=== PATIENT | female | born 1950 | race Caucasian/White ===

== ENCOUNTER 2017-02-09 08:36 | Observation (INO) | payer MEDICARE, BC ==
[2017-02-09] VITALS (8 sets, daily range): BP systolic 140–188; BP diastolic 63–91; PULSE 46–63; RESP 18–20; TEMP 97.5–98.2; O2SAT 98–100
[~2017-02-09] VITALS: Ht 162.6 cm; Wt 60.0 kg
[~2017-02-09 08:36] MED LIST: ATEN1TAB73 PO; IRBE150T49 PO; PERC5TAB12 PO
[2017-02-09] MEDS ORDERED: multivitamin PO (08:56)
[2017-02-09] MEDS ORDERED: IRBE150T49 PO (08:56)
[2017-02-09] MEDS ORDERED: ASPI81CH CHEW (08:56)
[2017-02-09] MEDS ORDERED: ATEN25TA PO (08:56)
[2017-02-09] MEDS ORDERED: SODIUM CHLORIDE 0.9% FLUSH 10 ML FLUSH IVF PRN (09:00)
--- NOTE | 2017-02-09 09:41 | RADRPT ---
EXAM DATE/TIME: 02/09/2017 08:58 [facility] COMPARISON: No previous studies available for comparison. INDICATIONS : Chest pain for the past 2 mornings, no shortness of breath, no pain at this time MEDICAL HISTORY : thyroid SURGICAL HISTORY : thyroidectomy ENCOUNTER: Initial ACUITY: 2 days PAIN SCORE: 0/10 LOCATION: Bilateral chest FINDINGS: A single view of the chest demonstrates the lungs to be symmetrically aerated without evidence of mas s, infiltrate or effusion. The cardiomediastinal contours are unremarkable. Osseous structures are intact. CONCLUSION: 1. No acute cardiopulmonary findings. Mg Castillo MD on February 09, 2017 at 9:39 Board Certified Radiologist. This report was verified electronically.
--- NOTE | 2017-02-09 09:41 | PD ---
HPI Chief Complaint: Chest Pain Time Seen by Provider: 09:04 Travel History International Travel<30 days: No Contact w/Intl Traveler<30days: No Traveled to known affect area: No History of Present Illness HPI 66-year-old female patient with history of CAD, angina, hypertension, hypothyroidism, breast cancer status post right mastectomy and treatment, presents to the ER today for intermittent course over the last 2 days of chest pains which she states is a ache, was a 6 out of 10 this morning, getting better now. She had some nausea this morning but states is gone. She denies any vomiting, shortness of breath, or any other symptoms. She does not know any exacerbating or alleviating factors. She states it lasted for several hours this morning. Modifying Factors: None Associated Signs & Symptoms: Intermittent chest pains Risk Factors: Cardiac history PFSH Past Medical History Arthritis: Yes Asthma: No Autoimmune Disease: No Anxiety: No Depression: No Heart Rhythm Problems: Yes (hx cp 2009/murmur) Cancer: Yes (RIGHT BREAST CANCER - NO CHEMO NO RADIATION - SURG MASTECTOMY ) Cardiovascular Problems: Yes High Cholesterol: Yes Chemotherapy: No Chest Pain: No Congestive Heart Failure: No COPD: No Cerebrovascular Accident: No Diabetes: No Diminished Hearing: No Endocrine: No GERD: No Genitourinary: No Hepatitis: No Hiatal Hernia: No Hypertension: Yes Immune Disorder: No Kidney Stones: No Musculoskeletal: Yes Neurologic: No Psychiatric: No Reproductive: Yes (ENDOMETRIAL HYPERPLASIA) Respiratory: No Migraines: No Radiation Therapy: No Renal Failure: No Seizures: No Sickle Cell Disease: No Sleep Apnea: No Thyroid Disease: Yes (HX GOITER - EXCISED 1984) Ulcer: No Tetanus Vaccination: > 5 Years ?: Not Menopausal: Yes Past Surgical History Abdominal Surgery: Yes (APPY ) AICD: No Appendectomy: Yes Arteriovenous Shunt: No Body Medical Devices: IMPLANT RIGHT BREAST (SILICONE) Cardiac Surgery: No Endocrine Surgery: Yes (MADI THYROIDECTOMY ) Eye Surgery: No Genitourinary Surgery: No Gynecologic Surgery: No Hysterectomy: Yes Insulin Pump: No Joint Replacement: No Oral Surgery: Yes (TONSILLECTOMY ) Pacemaker: No Thoracic Surgery: Yes (RIGHT BREAST MASTECTOMY, GOLF RANGE ATTENDANT, REMOVED/ IMPLANT SILICONE RIGHT BREAST ) Tonsillectomy: Yes Other Surgery: Yes (MASTECTOMY 2011) Social History Alcohol Use: Yes (1-2 GLASSES OF WINE) Tobacco Use: No Substance Use: No Allergies-Medications (Allergen,Severity, Reaction): Coded Allergies: Codeine (Verified Allergy, Severe, UNKNOWN, 06/04/14) NAUSEA ; INTERMEDIATE REACTION Latex (Verified Allergy, Severe, UNKNOWN, 06/04/14) RASH; INTERMEDIATE REACTION Sulfa (Verified Allergy, Severe, UNKNOWN, 06/04/14) CHILDHOOD ALLERGY ; NOT SURE OF REACTION Uncoded Allergies: opiods (Adverse Reaction, Intermediate, Hallucinations, 02/09/17) Reported Meds & Prescriptions Reported Meds & Active Scripts Active Reported [multivitamin] 1 PO QOD Avapro (Irbesartan) 150 Mg Tab 150 Mg PO DAILY Atenolol 25 Mg Tab 25 Mg PO DAILY Aspirin 81 Mg Chew 81 Mg CHEW DAILY Review of Systems Except as stated in HPI: all other systems reviewed are Neg Physical Exam Narrative GENERAL: Well-developed elderly white female patient currently in mild distress but awake and oriented 3. SKIN: Focused skin assessment warm/dry. HEAD: Atraumatic. Normocephalic. EYES: Pupils equal and round. No scleral icterus. No injection or drainage. ENT: No nasal bleeding or discharge. Mucous membranes pink and moist. NECK: Trachea midline. No JVD. CARDIOVASCULAR: Regular rate and rhythm. No murmur appreciated. Pulses are present and equal bilaterally. RESPIRATORY: No accessory muscle use. Clear to auscultation. Breath sounds equal bilaterally. GASTROINTESTINAL: Abdomen soft, non-tender, nondistended. Hepatic and splenic margins not palpable. MUSCULOSKELETAL: No obvious deformities. No clubbing. No cyanosis. No edema. NEUROLOGICAL: Awake and alert. No obvious cranial nerve deficits. Motor grossly within normal limits. Normal speech. PSYCHIATRIC: Appropriate mood and affect; insight and judgment normal. Data Data Last Documented VS Vital Signs Date Time Temp Pulse Resp B/P Pulse Ox O2 Delivery O2 Flow Rate FiO2 02/09/17 09:47 48 150/69 100 Room Air 02/09/17 09:00 18 02/09/17 08:38 98.2 Orders Electrocardiogram (02/09/17 08:56) Ckmb (Isoenzyme) Profile (02/09/17 08:56) Complete Blood Count With Diff (02/09/17 08:56) Comprehensive Metabolic Panel (02/09/17 08:56) Magnesium (Mg) (02/09/17 08:56) Prothrombin Time / Inr (Pt) (02/09/17 08:56) Act Partial Throm Time (Ptt) (02/09/17 08:56) Troponin I (02/09/17 08:56) Chest, Single Ap (02/09/17 08:56) Ecg Monitoring (02/09/17 08:56) Bilateral Bp Monitoring (02/09/17 08:56) Iv Access Insert/Monitor (02/09/17 08:56) Oximetry (02/09/17 08:56) Oxygen Administration (02/09/17 08:56) Sodium Chloride 0.9% Flush (Ns Flush) (02/09/17 09:00) Labs Laboratory Tests Test 02/09/17 09:23 White Blood Count 6.7 TH/MM3 Red Blood Count 4.36 MIL/MM3 Hemoglobin 13.1 GM/DL Hematocrit 39.1 % Mean Corpuscular Volume 89.9 FL Mean Corpuscular Hemoglobin 30.0 PG Mean Corpuscular Hemoglobin 33.4 % Concent Red Cell Distribution Width 13.8 % Platelet Count 260 TH/MM3 Mean Platelet Volume 7.8 FL Neutrophils (%) (Auto) 60.7 % Lymphocytes (%) (Auto) 30.3 % Monocytes (%) (Auto) 7.7 % Eosinophils (%) (Auto) 0.8 % Basophils (%) (Auto) 0.5 % Neutrophils # (Auto) 4.0 TH/MM3 Lymphocytes # (Auto) 2.0 TH/MM3 Monocytes # (Auto) 0.5 TH/MM3 Eosinophils # (Auto) 0.1 TH/MM3 Basophils # (Auto) 0.0 TH/MM3 CBC Comment DIFF FINAL Differential Comment Prothrombin Time 10.5 SEC Prothromb Time International 1.0 RATIO Ratio Activated Partial 25.5 SEC Thromboplast Time Sodium Level 138 MEQ/L Potassium Level 4.5 MEQ/L Chloride Level 105 MEQ/L Carbon Dioxide Level 27.2 MEQ/L Anion Gap 6 MEQ/L Blood Urea Nitrogen 17 MG/DL Creatinine 0.79 MG/DL Estimat Glomerular Filtration 73 ML/MIN Rate Random Glucose 99 MG/DL Calcium Level 8.9 MG/DL Magnesium Level 2.3 MG/DL Total Bilirubin 0.6 MG/DL Aspartate Amino Transf 18 U/L (AST/SGOT) Alanine Aminotransferase 23 U/L (ALT/SGPT) Alkaline Phosphatase 74 U/L Total Creatine Kinase 47 U/L Troponin I LESS THAN 0.02 NG/ML Total Protein 6.5 GM/DL Albumin 3.7 GM/DL MDM Medical Decision Making Medical Screen Exam Complete: Yes Emergency Medical Condition: Yes Medical Record Reviewed: Yes Interpretation(s) EKG shows sinus bradycardia rate of 54 bpm, no ST elevation or depression, and no arrhythmias. No significant T-wave inversions. Last 24 hours Impressions Chest X-Ray 02/09/17 0856 Signed Impressions: Service Date/Time: Thursday, February 09, 2017 08:58 - CONCLUSION: 1. No acute cardiopulmonary findings. Mg Castillo MD Laboratory Tests Test 02/09/17 09:23 Estimat Glomerular Filtration 73 ML/MIN (>89) Rate Troponin I LESS THAN 0.02 NG/ML (0.02-0.05) Differential Diagnosis Intermittent chest painsangina versus ACS versus anxiety versus dysrhythmias versus costochondritis Narrative Course EKG did not show dysrhythmias or ST changes. Cardiac enzymes are negative. At this point, my plan would be to admit her to chest pain center for further evaluation a chest pain. Diagnosis Primary Impression: Chest pain Admitting Information Admitting Physician Requests: Admit Chemo Hurt MD Feb 09, 2017 09:41 Chemo Hurt MD Feb 09, 2017 09:41
[2017-02-09 09:42] LABS: BASOPHIL % 0.5 % (0.0-2.0); EOSINOPHIL # 0.1 TH/MM3 (0-0.4); EOSINOPHIL % 0.8 % (0.0-4.0); HEMATOCRIT 39.1 % (35.0-46.0); HEMO FLAGS DIFF FINAL; LYMPH % 30.3 % (9.0-44.0); MEAN CELL VOLUME 89.9 FL (80.0-100.0); MEAN CORPUSCULAR HGB CONC 33.4 % (32.0-36.0); MONO % 7.7 % (0.0-8.0); NEUT % 60.7 % (16.0-70.0); PLATELET COUNT 260 TH/MM3 (150-450); RED BLOOD COUNT 4.36 MIL/MM3 (4.00-5.30); RED CELL DISTRIBUTION WIDTH 13.8 % (11.6-17.2); WHITE BLOOD COUNT 6.7 TH/MM3 (4.0-11.0)
[2017-02-09 09:53] LABS: APTT (PATIENT) 25.5 SEC (24.3-30.1); PROTHROMBIN TIME - PATIENT 10.5 SEC (9.8-11.6)
[2017-02-09 10:12] LABS: ANION GAP 6 MEQ/L (5-15); AST (GOT) 18 U/L (15-37); BICARBONATE 27.2 MEQ/L (21.0-32.0); BLOOD UREA NITROGEN 17 MG/DL (7-18); CHLORIDE 105 MEQ/L (98-107); GLOMERULAR FILTRATION RATE 73 ML/MIN (>89); MAGNESIUM 2.3 MG/DL (1.5-2.5); POTASSIUM 4.5 MEQ/L (3.5-5.1); SODIUM (NA) 138 MEQ/L (136-145)
[2017-02-09 10:13] LABS: ALT (GPT) 23 U/L (10-53)
[2017-02-09 10:18] LABS: ALKALINE PHOSPHATASE 74 U/L (45-117); CREATINE KINASE 47 U/L (26-192); TOTAL BILIRUBIN ADULT 0.6 MG/DL (0.2-1.0)
[2017-02-09] MEDS ORDERED: SODIUM CHLORIDE 0.9% FLUSH 5 ML FLUSH IVF PRN (11:45)
--- NOTE | 2017-02-09 11:50 | HHI.HP ---
[facility] Primary Care Physician Ronaldo Wallace MD, PhD Chief Complaint Chest pain History of Present Illness This is a 66-year-old female that presents to ED via private vehicle with a friend complaining of intermittent chest discomfort for 3 days. First episode began 3 days ago. She states it was a achy discomfort over her sternum and lasted all day. She found nothing to worsen or improve. She took some Advil and went to bed. She woke up yesterday morning at 4:00 with the discomfort. She took a baby aspirin. The discomfort resolved within about 10 minutes. Then this morning around 5:30 she developed the same discomfort but it was more intense. He was over the sternum but felt deeper and also left upper chest. She also felt an achiness going down her left arm. She took a baby aspirin. This lasted a few hours. She will pull nauseous. No shortness breath or diaphoresis. She found nothing to worsen or improve the symptoms. Denies history of CAD. She states that stress test past. I reviewed her records she had a Raul protocol ETT in 2009 and was nonischemic. Review of Systems General: Patient denies fevers, chills recent, and recent travel HEENT: Patient denies headache, sore throat, difficulty swallowing. Cardiovascular: Has the chest discomfort as mentioned above. Denies sensation of heart beating rapidly or irregularly. No syncope. Denies diaphoresis. Respiratory: Denies shortness of breath or inspirational chest discomfort. Denies coughing wheezing or hemoptysis. GI: She was nauseous this morning. Patient denies vomiting, diarrhea, abdominal pain, bloody stools. Musculoskeletal: Patient denies joint pain or edema. Denies calf pain or edema. Neurovascular: Patient denies numbness, tingling, weakness in extremities. Denies headache. Endocrine: Denies polyuria and polydipsia. Hematologic: Denies easy bruising. Skin: Denies rash or itching. Past Family Social History Allergies: Coded Allergies: Codeine (Verified Allergy, Severe, UNKNOWN, 06/04/14) NAUSEA ; INTERMEDIATE REACTION Latex (Verified Allergy, Severe, UNKNOWN, 06/04/14) RASH; INTERMEDIATE REACTION Sulfa (Verified Allergy, Severe, UNKNOWN, 06/04/14) CHILDHOOD ALLERGY ; NOT SURE OF REACTION Uncoded Allergies: opiods (Adverse Reaction, Intermediate, Hallucinations, 6/6/17) Past Medical History Hypertension. History of breast cancer with right mastectomy. Denies hyperlipidemia, diabetes, and known CAD. Past Surgical History Right mastectomy. Appendectomy, hysterectomy, tonsillectomy, and partial thyroidectomy. Reported Medications Reported Meds & Active Scripts Active Reported [multivitamin] 1 PO QOD Avapro (Irbesartan) 150 Mg Tab 150 Mg PO DAILY Atenolol 25 Mg Tab 25 Mg PO DAILY Aspirin 81 Mg Chew 81 Mg CHEW DAILY Active Ordered Medications Current Medications Medications (Trade) Dose Ordered Sig/Tay Route Start Time Stop Time Status Last Admin (NS Flush) 2 ml UNSCH PRN IVF 02/09/17 09:00 Family History Her father had a stent at age 90. Social History Patient quit smoking in 1984. She has on average 2 glasses of wine a day. Denies illicit drugs. Physical Exam Vital Signs Vital Signs Date Time Temp Pulse Resp B/P Pulse Ox O2 Delivery O2 Flow Rate FiO2 02/09/17 11:27 55 20 140/63 100 Room Air 02/09/17 09:47 48 150/69 100 Room Air 02/09/17 09:34 100 Room Air 02/09/17 09:32 100 Room Air 02/09/17 09:32 100 Room Air 02/09/17 09:00 50 18 188/85 100 Room Air 168/74 02/09/17 08:56 50 18 188/85 100 Room Air 168/74 02/09/17 08:38 98.2 63 18 188/91 98 Physical Exam GENERAL: This is a well-nourished, well-developed patient, in no apparent distress. Patient speaks in clear complete sentences. Patient is pleasant. HEENT: Head is atraumatic and normocephalic. Neck is supple without lymphadenopathy and trachea is midline. No JVD or carotid bruits. CARDIOVASCULAR: Regular rate and rhythm without murmurs, gallops, or rubs. RESPIRATORY: Clear to auscultation. Breath sounds equal bilaterally. No wheezes , rales, or rhonchi. Chest wall is tender in the midsternal region however she states her chest wall is always tender.. No use of accessory muscles. GASTROINTESTINAL: Abdomen is nontender, nondistended. Abdomen soft. No obvious pulsatile mass or bruit. No CVA tenderness. Strong femoral pulses bilaterally. Normal bowel sounds in all quadrants. MUSCULOSKELETAL: Patient is moving upper and lower extremities freely. No calf tenderness or edema, no Homans sign. Strong pulses in upper and lower extremities. NEUROLOGICAL: Patient is alert and oriented. Cranial nerves 2-12 are grossly intact. No focal deficits and speech is clear. SKIN: No rash and turgor is normal. Laboratory Laboratory Tests Test 02/09/17 09:23 White Blood Count 6.7 Red Blood Count 4.36 Hemoglobin 13.1 Hematocrit 39.1 Mean Corpuscular Volume 89.9 Mean Corpuscular Hemoglobin 30.0 Mean Corpuscular Hemoglobin 33.4 Concent Red Cell Distribution Width 13.8 Platelet Count 260 Mean Platelet Volume 7.8 Neutrophils (%) (Auto) 60.7 Lymphocytes (%) (Auto) 30.3 Monocytes (%) (Auto) 7.7 Eosinophils (%) (Auto) 0.8 Basophils (%) (Auto) 0.5 Neutrophils # (Auto) 4.0 Lymphocytes # (Auto) 2.0 Monocytes # (Auto) 0.5 Eosinophils # (Auto) 0.1 Basophils # (Auto) 0.0 CBC Comment DIFF FINAL Differential Comment Prothrombin Time 10.5 Prothromb Time International 1.0 Ratio Activated Partial 25.5 Thromboplast Time Sodium Level 138 Potassium Level 4.5 Chloride Level 105 Carbon Dioxide Level 27.2 Anion Gap 6 Blood Urea Nitrogen 17 Creatinine 0.79 Estimat Glomerular Filtration 73 Rate Random Glucose 99 Calcium Level 8.9 Magnesium Level 2.3 Total Bilirubin 0.6 Aspartate Amino Transf 18 (AST/SGOT) Alanine Aminotransferase 23 (ALT/SGPT) Alkaline Phosphatase 74 Total Creatine Kinase 47 Troponin I LESS THAN 0.02 Total Protein 6.5 Albumin 3.7 Result Diagram: 02/09/1792202/09/1723 Imaging Vital Signs Date Time Temp Pulse Resp B/P Pulse Ox O2 Delivery O2 Flow Rate FiO2 02/09/17 11:27 55 20 140/63 100 Room Air 02/09/17 09:47 48 150/69 100 Room Air 02/09/17 09:34 100 Room Air 02/09/17 09:32 100 Room Air 02/09/17 09:32 100 Room Air 02/09/17 09:00 50 18 188/85 100 Room Air 168/74 02/09/17 08:56 50 18 188/85 100 Room Air 168/74 02/09/17 08:38 98.2 63 18 188/91 98 Last 48 hours Impressions Chest X-Ray 02/09/17 0856 Signed Impressions: Service Date/Time: Thursday, February 09, 2017 08:58 - CONCLUSION: 1. No acute cardiopulmonary findings. Mg Castillo MD Course Initial EKG has sinus rhythm without significant ST segment depressions or elevations. Assessment and Plan Assessment and Plan * Chest pain: Patient will continue to have serial cardiac enzymes and EKGs for ruling out purposes. She will be seen by Dr. Ritchie cardiology in the chest pain center. She will likely undergo a Raul protocol ETT. She will likely be discharged home if her stress test is nonischemic. * Hypertension: Continue current medication. Patient is stable this time. She is agreeable to this plan. Rey Bryant Feb 09, 2017 11:50
[2017-02-09] MEDS ORDERED: ACETAMINOPHEN 500 MG CPLT PO PRN (12:00)
[2017-02-09] MEDS ORDERED: ONDANSETRON HCL 4 MG/2 ML VIAL IV PRN (12:00)
[2017-02-09] MEDS ORDERED: PANTOPRAZOLE SOD 40 MG DELAYED RELEASE TAB PO SCH (13:00)
[2017-02-09 13:48] LABS: CREATINE KINASE 37 U/L (26-192)
[2017-02-09 15:03] LABS: CREATINE KINASE 33 U/L (26-192)
--- NOTE | 2017-02-09 16:12 | EKG ---
Date Performed: 02/09/2017 Time Performed: 14:25:16 PTAGE: 66 years EKG: SINUS BRADYCARDIA BORDERLINE ECG Since PREVIOUS TRACING , no significant change noted PREVIOUS TRACIN02/09/2017 12.27 DOCTOR: Sondra Ritchie Interpretating Date/Time 02/09/2017 16:10:15
--- NOTE | 2017-02-09 16:14 | TR ---
Date Performed: 02/09/2017 Time Performed: 15:39:27 DOCTOR: Sondra Ritchie DRUG LIST: CLINICAL HISTORY: REASON FOR TEST: Chest pain REASON FOR ENDING: OBSERVATION: CONCLUSION: TIMA PROTOCOL. NO CP. TEST STOPPED AFTER REACHING GOAL HR SECONDARY TO SOB.Maximum XH=918 Max HR Achieved=92.0% Maximum XP=990/90 Total Exercise Time=9:52 COMMENTS:
--- NOTE | 2017-02-09 16:15 | EKG ---
Date Performed: 02/09/2017 Time Performed: 12:27:56 PTAGE: 66 years EKG: SINUS BRADYCARDIA BORDERLINE ECG Since PREVIOUS TRACING , no significant change noted PREVIOUS TRACIN02/09/2017 08.51 DOCTOR: Sondra Ritchie Interpretating Date/Time 02/09/2017 16:14:14
--- NOTE | 2017-02-09 16:17 | EKG ---
Date Performed: 02/09/2017 Time Performed: 08:51:24 PTAGE: 66 years EKG: SINUS BRADYCARDIA BORDERLINE ECG Since PREVIOUS TRACING , no significant change noted PREVIOUS TRACIN02/20/2014 14.02.52 DOCTOR: Sondra Ritchie Interpretating Date/Time 02/09/2017 22:29:38
[2017-02-09] MEDS ORDERED: AMLO5TAB2 PO (16:31)
--- NOTE | 2017-02-09 16:31 | HHI.DCPOC ---
Discharge Care Plan Diagnosis: (1) Chest pain Goals to Promote Your Health * To prevent worsening of your condition and complications * To maintain your health at the optimal level Directions to Meet Your Goals Take your medications as prescribed Follow your dietary instruction Follow activity as directed Keep your appointments as scheduled Take your immunizations and boosters as scheduled If your symptoms worsen call your PCP, if no PCP go to Urgent Care Center or Emergency Room Smoking is Dangerous to Your Health. Avoid second hand smoke Call the 24-hour hour crisis hotline for domestic abuse at Rey Bryant Feb 09, 2017 16:31
[2017-02-09] MEDS ORDERED: SODIUM CHLORIDE 0.9% FLUSH 5 ML FLUSH IVF SCH (21:00)
[2017-02-10] MEDS ORDERED: ASPIRIN 325 MG TAB PO SCH (09:00)
[2017-02-10] MEDS ORDERED: ATENOLOL 25 MG TAB PO SCH (09:00)
== END 2017-02-09 17:15 | disposition home or self-care (01) ==
LOC: NEPC 08:36 → NEDA 10:45 → NEPHCDU 11:36
PROVIDERS: ADMIT Internal Medicine Interventional Cardiology; ATTEND Internal Medicine Interventional Cardiology
DX: R07.89 Other chest pain (principal); I10 Essential (primary) hypertension; M19.90 Unspecified osteoarthritis, unspecified site; Z88.5 Allergy status to narcotic agent; Z88.2 Allergy status to sulfonamides; Z91.040 Latex allergy status; Z85.3 Personal history of malignant neoplasm of breast; Z79.82 Long term (current) use of aspirin; Z87.891 Personal history of nicotine dependence
CPT/HCPCS: 71010; 80053; 82550; 83735; 84484; 85025; 85610; 85730; 93005; 93017; 99285; G0378

== ENCOUNTER 2017-02-19 23:51 | Emergency (ER) | payer MEDICARE, BC ==
[~2017-02-19] VITALS: Ht 162.6 cm; Wt 59.0 kg
[~2017-02-19 23:51] MED LIST changes: +AMLO5TAB2 PO; +ASPI81CH CHEW; -ATEN1TAB73 PO; -PERC5TAB12 PO; +multivitamin PO
[2017-02-20 00:04] VITALS: BP 156/79; PULSE 73; RESP 14; TEMP 98.2; O2SAT 100
[2017-02-20 00:22] LABS: MEAN CORPUSCULAR HGB CONC 36.2 % (32.0-36.0)
[2017-02-20] MEDS ORDERED: SODIUM CHLORIDE 0.9% FLUSH 10 ML FLUSH IVF PRN (00:30)
--- NOTE | 2017-02-20 00:38 | PD ---
HPI Chief Complaint: Chest Pain Time Seen by Provider: 00:07 Travel History International Travel<30 days: No Contact w/Intl Traveler<30days: No Traveled to known affect area: No History of Present Illness HPI This 66 year-old woman presents to the emergency department complaining of sharp chest pain lasting seconds at a time, multiple births over about 10 minutes or so, happening tonight awoke her from sleep. Pains are in the mid chest, sharp. No shortness of breath. She states she's been on atenolol since the 80s, but she was seen for chest pain or blood pressure was low. They changed to amlodipine about a week ago but she started to develop ankle edema. She was just changed to an increased dose of IV start. She has no history of CAD but was told in the past that she had "angina" in the 80s and she was apparently having chest pains. She is also diagnosis of mitral valve prolapse at that time. She otherwise has been feeling well and healthy. No other complaints. History Past Medical History Narrative Medical Hypertension Hypothyroidism Breast cancer History of "angina" a diagnosis of mitral valve prolapse in the past. Menopausal: Yes Social History Alcohol Use: Yes (1-2 GLASSES OF WINE DAILY) Tobacco Use: No Allergies-Medications (Allergen,Severity, Reaction): Coded Allergies: Codeine (Verified Allergy, Severe, UNKNOWN, 02/20/17) NAUSEA ; INTERMEDIATE REACTION Latex (Verified Allergy, Severe, UNKNOWN, 02/20/17) RASH; INTERMEDIATE REACTION Sulfa (Verified Allergy, Severe, UNKNOWN, 02/20/17) CHILDHOOD ALLERGY ; NOT SURE OF REACTION Uncoded Allergies: opiods (Adverse Reaction, Intermediate, Hallucinations, 02/09/17) Reported Meds & Prescriptions Reported Meds & Active Scripts Active Reported [multivitamin] 1 PO QOD Avapro (Irbesartan) 150 Mg Tab 150 Mg PO HS Review of Systems Except as stated in HPI: all other systems reviewed are Neg Physical Exam Narrative GENERAL: Well-appearing 66 year-old woman, no acute distress. SKIN: Focused skin assessment warm/dry. HEAD: Atraumatic. Normocephalic. CARDIOVASCULAR: Regular rate and rhythm. No murmur appreciated. RESPIRATORY: No accessory muscle use. Clear to auscultation. Breath sounds equal bilaterally. GASTROINTESTINAL: Abdomen soft, non-tender, nondistended. Hepatic and splenic margins not palpable. MUSCULOSKELETAL: No obvious deformities. No edema. NEUROLOGICAL: Awake and alert. No obvious cranial nerve deficits. Motor grossly within normal limits. Normal speech. Data Data Last Documented VS Vital Signs Date Time Temp Pulse Resp B/P Pulse Ox O2 Delivery O2 Flow Rate FiO2 02/20/17 00:26 100 Room Air 02/20/17 00:04 98.2 73 14 156/79 Orders Electrocardiogram (02/20/17 00:20) Complete Blood Count With Diff (02/20/17 00:20) Comprehensive Metabolic Panel (02/20/17 00:20) Magnesium (Mg) (02/20/17 00:20) Troponin I (02/20/17 00:20) Lipase (02/20/17 00:20) Chest, Single Ap (02/20/17 00:20) Ecg Monitoring (02/20/17 00:20) Iv Access Insert/Monitor (02/20/17 00:20) Oximetry (02/20/17 00:20) Oxygen Administration (02/20/17 00:20) Sodium Chloride 0.9% Flush (Ns Flush) (02/20/17 00:30) Labs Laboratory Tests Test 02/20/17 00:39 White Blood Count 9.0 TH/MM3 Red Blood Count 4.32 MIL/MM3 Hemoglobin 13.7 GM/DL Hematocrit 38.0 % Mean Corpuscular Volume 88.0 FL Mean Corpuscular Hemoglobin 31.8 PG Mean Corpuscular Hemoglobin 36.2 % Concent Red Cell Distribution Width 13.5 % Platelet Count 321 TH/MM3 Mean Platelet Volume 8.1 FL Neutrophils (%) (Auto) 63.9 % Lymphocytes (%) (Auto) 26.5 % Monocytes (%) (Auto) 7.6 % Eosinophils (%) (Auto) 1.3 % Basophils (%) (Auto) 0.7 % Neutrophils # (Auto) 5.7 TH/MM3 Lymphocytes # (Auto) 2.4 TH/MM3 Monocytes # (Auto) 0.7 TH/MM3 Eosinophils # (Auto) 0.1 TH/MM3 Basophils # (Auto) 0.1 TH/MM3 CBC Comment AUTO DIFF Differential Comment AUTO DIFF CONFIRMED Platelet Estimate NORMAL Platelet Morphology Comment NORMAL Sodium Level 140 MEQ/L Potassium Level 4.2 MEQ/L Chloride Level 105 MEQ/L Carbon Dioxide Level 28.7 MEQ/L Anion Gap 6 MEQ/L Blood Urea Nitrogen 16 MG/DL Creatinine 0.99 MG/DL Estimat Glomerular Filtration 56 ML/MIN Rate Random Glucose 95 MG/DL Calcium Level 9.1 MG/DL Magnesium Level 2.4 MG/DL Total Bilirubin 0.4 MG/DL Aspartate Amino Transf 38 U/L (AST/SGOT) Alanine Aminotransferase 29 U/L (ALT/SGPT) Alkaline Phosphatase 89 U/L Troponin I LESS THAN 0.02 NG/ML Total Protein 7.9 GM/DL Albumin 4.4 GM/DL Lipase 245 U/L [facility] Medical Decision Making Medical Screen Exam Complete: Yes Emergency Medical Condition: Yes Interpretation(s) My review of EKG: Normal sinus rhythm at a rate of 65, normal axis, normal intervals, no acute ischemia. LABS: CBC unremarkable. CMP unremarkable. Troponin negative. Lipase is normal Chest x-ray negative Differential Diagnosis Anxiety, palpitations, arrhythmia, ACS, PE, other Narrative Course Medical decision making INITIAL: 66 year-old woman presents to the emergency department complaining of chest pain. Chest pain is lasting seconds at a time, multiple births in the mid chest. This does not sound consistent with ACS. Recent admission to the chest pain Center week or so ago. No stress test. She looks well. This is likely palpitations arrhythmia or anxiety. We'll check labs, outpatient follow- up with cardiology. Diagnosis Primary Impression: Chest pain Additional Instructions: Follow-up with Dr. Ritchie next week. Return to the emergency department for any new or worsening symptoms. Med/Other Pt SpecificInfo: No Change to Meds Disposition: 01 DISCHARGE HOME Condition: Stable René Araya MD Feb 20, 2017 00:38
--- NOTE | 2017-02-20 00:53 | RADRPT ---
EXAM DATE/TIME: 02/20/2017 00:32 [facility] COMPARISON: CHEST SINGLE AP, February 09, 2017, 8:58. INDICATIONS : Chest pain earlier today but self resolved. MEDICAL HISTORY : None. SURGICAL HISTORY : None. ENCOUNTER: Initial ACUITY: 1 day PAIN SCORE: 0/10 LOCATION: Bilateral chest FINDINGS: A single view of the chest demonstrates the lungs to be symmetrically aerated without evidence of mas s, infiltrate or effusion. The cardiomediastinal contours are unremarkable. Osseous structures are intact. CONCLUSION: No acute disease. No significant change has occurred. Wyatt Boucher MD on February 20, 2017 at 0:51 Board Certified Radiologist. This report was verified electronically.
[2017-02-20 00:57] LABS: AUTOMATED NEUTROPHIL # 5.7 TH/MM3 (1.8-7.7); BASOPHIL # 0.1 TH/MM3 (0-0.2); BASOPHIL % 0.7 % (0.0-2.0); EOSINOPHIL # 0.1 TH/MM3 (0-0.4); EOSINOPHIL % 1.3 % (0.0-4.0); LYMPH % 26.5 % (9.0-44.0); LYMPHOCYTE # 2.4 TH/MM3 (1.0-4.8); MEAN CORPUSCULAR HEMOGLOBIN 31.8 PG (27.0-34.0); MONO % 7.6 % (0.0-8.0); NEUT % 63.9 % (16.0-70.0); PLATELET COUNT 321 TH/MM3 (150-450); RED BLOOD COUNT 4.32 MIL/MM3 (4.00-5.30); RED CELL DISTRIBUTION WIDTH 13.5 % (11.6-17.2)
[2017-02-20 01:21] LABS: ALKALINE PHOSPHATASE 89 U/L (45-117); ALT (GPT) 29 U/L (10-53); TOTAL BILIRUBIN ADULT 0.4 MG/DL (0.2-1.0)
[2017-02-20 01:24] LABS: HEMO FLAGS AUTO DIFF
[2017-02-20 01:34] LABS: ANION GAP 6 MEQ/L (5-15); AST (GOT) 38 U/L (15-37); BICARBONATE 28.7 MEQ/L (21.0-32.0); BLOOD UREA NITROGEN 16 MG/DL (7-18); CHLORIDE 105 MEQ/L (98-107); GLOMERULAR FILTRATION RATE 56 ML/MIN (>89); MAGNESIUM 2.4 MG/DL (1.5-2.5); POTASSIUM 4.2 MEQ/L (3.5-5.1); SODIUM (NA) 140 MEQ/L (136-145)
[2017-02-20 03:02] LABS: PLATELET ESTIMATE SMEAR NORMAL (NORMAL); PLATELET MORPHOLOGY NORMAL (NORMAL); SCAN/DIFF AUTO DIFF CONFIRMED
[2017-02-20 03:36] VITALS: BP 123/69
--- NOTE | 2017-02-20 13:09 | EKG ---
Date Performed: 02/20/2017 Time Performed: 00:26:06 PTAGE: 66 years EKG: Sinus rhythm NORMAL ECG PREVIOUS TRACING : 02/09/2017 14.25 Compared to prior tracing no significant change DOCTOR: Aydin Culp Interpretating Date/Time 02/20/2017 13:07:04
== END 2017-02-20 04:01 | disposition home or self-care (01) ==
LOC: NEPC 23:51
DX: R07.9 Chest pain, unspecified (principal); I10 Essential (primary) hypertension; E03.9 Hypothyroidism, unspecified; I34.1 Nonrheumatic mitral (valve) prolapse; Z85.3 Personal history of malignant neoplasm of breast
CPT/HCPCS: 71010; 80053; 83690; 83735; 84484; 85025; 93005; 99285